=== PATIENT | male | born 1960 | race African-American/Black ===

== ENCOUNTER 2022-09-05 12:38 | Outpatient (CLI) | payer BC, OTHER | END 2022-09-05 12:39 | disposition home or self-care (01) | LOC: TBSIIMAG 12:38 | PROVIDERS: ATTEND Neurological Surgery | DX: M54.2 Cervicalgia (principal); Z98.1 Arthrodesis status | CPT/HCPCS: 72040 ==

== ENCOUNTER 2022-10-03 14:32 | Outpatient (CLI) | payer BC | END 2022-10-03 14:33 | disposition home or self-care (01) | LOC: TBSIIMAG 14:32 | PROVIDERS: ATTEND Neurological Surgery | DX: M48.02 Spinal stenosis, cervical region (principal); M47.12 Other spondylosis with myelopathy, cervical region; Z98.1 Arthrodesis status | CPT/HCPCS: 72040 ==